=== PATIENT | male | born 1930 | race Caucasian/White ===

== ENCOUNTER 2016-07-25 12:44 | Inpatient (IN) | payer OTHER ==
[~2016-07-25] VITALS: Ht 167.6 cm; Wt 63.0 kg
[~2016-07-25 12:44] MED LIST: ACET325T14 PO; AMLO5TAB2 PO; ASPI-496 PO; ASPI1TAB30 PO; AZIT-14 PO; AZIT500T4 PO; CARV3.1212 PO; CARV3.122 PO; CEFD300C2 PO; CHOL20003 PO; CHOL500014 SQ-VACC; FLUC200T PO; FLUT16SP2 NAS; FLUT50DI IH; FURO-92 PO; FURO20TA3 PO; GABA100C PO; GINK120C PO; GINS100C PO; GUAI200T3 PO; ISOS30TA19 PO; LEVO750T26 PO; LEVO88TA2 PO; LISI5TAB7 PO; LOVA40TA2 PO; METH4TAB2 PO; METR500T PO; MILK150C2 PO; MV-M1TAB3 PO; OMEP-110 PO; OMEP40CA6 PO; PANT40TA5 PO; POTA20PA PO; POTA20TA14 PO; POTASSIUM AMINO ACID PO; [UNRECOGNIZED DRUG - OTHER] PO
[2016-07-25] MEDS ORDERED: ONDANSETRON 2MG/ML, 2ML IVPush ONE (13:30)
[2016-07-25] MEDS ORDERED: SODIUM CHLORIDE FLUSH 10ML SYR IVF ONE (13:30)
[2016-07-25] MEDS ORDERED: MECLIZINE CHEWABLE 25 MG TAB PO ONE (13:30)
[2016-07-25] MEDS ORDERED: MECLIZINE CHEWABLE 25 MG TAB ONE (13:35)
[2016-07-25] MEDS ORDERED: ONDANSETRON 2MG/ML, 2ML ONE (13:36)
[2016-07-25 14:17] LABS: ASPARTATE AMINO TRANSFERASE 26 U/L (15-37); BLOOD UREA NITROGEN 29 mg/dL (7-18)
[2016-07-25 14:26] LABS: IS PT STATUS REG ER OR PRE ER? YES
[2016-07-25 14:44] LABS: HEMOGLOBIN 11.6 g/dL (13.7-18.0)
[2016-07-25] MEDS ORDERED: SODIUM CHLORIDE FLUSH 10ML SYR IVF PRN (15:00)
[2016-07-25] MEDS ORDERED: METRONIDAZOLE PMX 500MG/100ML 100 ML IVPB ONE (15:00)
[2016-07-25] MEDS ORDERED: LEVOFLOXACIN/PMX 750MG/150ML 150 ML IVPB ONE (15:00)
[2016-07-25] MEDS ORDERED: LEVOFLOXACIN/PMX 750MG/150ML 150 ML ONE (15:48)
[2016-07-25] MEDS ORDERED: ONDANSETRON 2MG/ML, 2ML IVP PRN (16:00)
[2016-07-25] MEDS ORDERED: POLYETHYLENE GLYCOL 17 GM PACKET PO PRN (16:00)
[2016-07-25] MEDS ORDERED: BISACODYL 10 MG SUPP PR PRN (16:00)
[2016-07-25] MEDS ORDERED: DOCUSATE 100 MG CAPSULE PO PRN (16:00)
[2016-07-25] MEDS ORDERED: OMNIPAQUE 350 MG/ML, 75ML BOTTLE ONE (16:32)
[2016-07-25] MEDS: METRONIDAZOLE PMX 500MG/100ML 100 ML IV SCH (18:33)
[2016-07-25] MEDS: LACTOBACILLUS CHEW TABLET PO SCH ×2 (18:33→23:15)
[2016-07-25] MEDS: ENOXAPARIN 40 MG/0.4 ML SQ SCH (18:33)
[2016-07-25] MEDS: SODIUM CHLORIDE 0.9% 1,000 ML IV SCH (18:33)
[2016-07-25 18:42] VITALS: BP 170/87
[2016-07-25 20:40] VITALS: BP_SYST 161; BP_SYST 171; BP_DIAS 82; BP_DIAS 85
[2016-07-25] MEDS: CARVEDILOL 3.125 MG TABLET PO SCH (21:00)
[2016-07-25 22:02] VITALS: BP 181/89
[2016-07-25 22:18] VITALS: BP 172/79
[2016-07-25] MEDS: ACETAMINOPHEN 325 MG TABLET PO PRN (22:22)
[2016-07-25 22:46] VITALS: BP 151/69
[2016-07-25] MEDS ORDERED: MORPHINE SULFATE 4 MG/ML, 1ML IVPush ONE (23:00)
[2016-07-25] MEDS ORDERED: MORPHINE SULFATE 4 MG/ML, 1ML ONE (23:10)
[2016-07-25 23:48] LABS: IS PT STATUS REG ER OR PRE ER? NO
[2016-07-26] VITALS (8 sets, daily range): BP systolic 94–187; BP diastolic 52–95
[2016-07-26] MEDS ORDERED: hydrALAzine 20 MG/ML, 1ML IV PRN (01:00)
[2016-07-26] MEDS: METRONIDAZOLE PMX 500MG/100ML 100 ML IV SCH ×3 (03:45→19:54)
[2016-07-26] MEDS: SODIUM CHLORIDE 0.9% 1,000 ML IV SCH (05:04)
[2016-07-26 06:05] LABS: BLOOD UREA NITROGEN 22 mg/dL (7-18)
[2016-07-26 06:12] LABS: ASPARTATE AMINO TRANSFERASE 16 U/L (15-37)
[2016-07-26 06:14] LABS: HEMOGLOBIN 11.1 g/dL (13.7-18.0)
[2016-07-26 06:32] LABS: IS PT STATUS REG ER OR PRE ER? NO
[2016-07-26 06:36] LABS: DIFF TOTAL CELLS COUNTED 100 CELL DIFF
[2016-07-26 06:41] LABS: ANISOCYTOSIS 1+; OVALOCYTES 1+; TARGET CELLS 1+
[2016-07-26 06:42] LABS: LARGE PLATELETS 1+
[2016-07-26 06:43] LABS: VERIFY COUNTS? YES
[2016-07-26] MEDS: CARVEDILOL 3.125 MG TABLET PO SCH (07:36)
[2016-07-26] MEDS: LEVOTHYROXINE 88 MCG TABLET PO SCH (08:03)
[2016-07-26] MEDS: OMEPRAZOLE 20 MG CAPSULE.DR PO SCH (08:03)
[2016-07-26] MEDS: ASPIRIN 81 MG TABLET EC PO SCH (08:03)
[2016-07-26] MEDS: AMLODIPINE 5 MG TABLET PO SCH (08:03)
[2016-07-26] MEDS: LACTOBACILLUS CHEW TABLET PO SCH ×3 (08:03→19:54)
[2016-07-26] MEDS: ISOSORBIDE DINITRATE 30 MG TABLET PO SCH (08:03)
[2016-07-26 11:06] LABS: IS PT STATUS REG ER OR PRE ER? NO
[2016-07-26] MEDS: ENOXAPARIN 40 MG/0.4 ML SQ SCH (15:55)
[2016-07-26] MEDS: LEVOFLOXACIN/PMX 750MG/150ML 150 ML IV SCH (15:56)
[2016-07-27 01:46] VITALS: BP 137/72
[2016-07-27] MEDS: METRONIDAZOLE PMX 500MG/100ML 100 ML IV SCH ×3 (04:02→20:18)
[2016-07-27 07:10] VITALS: BP_SYST 136; BP_SYST 163; BP_DIAS 68; BP_DIAS 73
[2016-07-27] MEDS: ISOSORBIDE DINITRATE 30 MG TABLET PO SCH (08:44)
[2016-07-27] MEDS: OMEPRAZOLE 20 MG CAPSULE.DR PO SCH (08:45)
[2016-07-27] MEDS: AMLODIPINE 5 MG TABLET PO SCH (08:45)
[2016-07-27] MEDS: ASPIRIN 81 MG TABLET EC PO SCH (08:45)
[2016-07-27] MEDS: LEVOTHYROXINE 88 MCG TABLET PO SCH (08:45)
[2016-07-27] MEDS: LACTOBACILLUS CHEW TABLET PO SCH ×3 (08:46→20:18)
[2016-07-27] MEDS ORDERED: CARVEDILOL 3.125 MG TABLET PO SCH (09:00)
[2016-07-27 13:02] VITALS: BP 107/50
[2016-07-27] MEDS: ENOXAPARIN 40 MG/0.4 ML SQ SCH (16:19)
[2016-07-27] MEDS: LEVOFLOXACIN/PMX 750MG/150ML 150 ML IV SCH (16:19)
[2016-07-27 19:08] VITALS: BP 124/66
[2016-07-28 03:08] VITALS: BP 138/56
[2016-07-28] MEDS: METRONIDAZOLE PMX 500MG/100ML 100 ML IV SCH ×3 (04:28→22:14)
[2016-07-28 07:02] VITALS: BP 135/74
[2016-07-28] MEDS: ASPIRIN 81 MG TABLET EC PO SCH (08:21)
[2016-07-28] MEDS: LEVOTHYROXINE 88 MCG TABLET PO SCH (08:21)
[2016-07-28] MEDS: ISOSORBIDE DINITRATE 30 MG TABLET PO SCH (08:21)
[2016-07-28] MEDS: LACTOBACILLUS CHEW TABLET PO SCH ×3 (08:21→21:27)
[2016-07-28] MEDS: OMEPRAZOLE 20 MG CAPSULE.DR PO SCH (08:21)
[2016-07-28] MEDS: AMLODIPINE 5 MG TABLET PO SCH (08:21)
[2016-07-28 13:00] VITALS: BP 138/67
[2016-07-28] MEDS: ENOXAPARIN 40 MG/0.4 ML SQ SCH (17:45)
[2016-07-28] MEDS: LEVOFLOXACIN/PMX 750MG/150ML 150 ML IV SCH (17:45)
[2016-07-28 20:00] VITALS: BP 150/81
[2016-07-29 03:30] VITALS: BP 157/71
[2016-07-29] MEDS: METRONIDAZOLE PMX 500MG/100ML 100 ML IV SCH ×3 (05:50→23:10)
[2016-07-29 07:28] LABS: BLOOD UREA NITROGEN 14 mg/dL (7-18)
[2016-07-29 07:41] LABS: DIFF TOTAL CELLS COUNTED 100 CELL DIFF; HEMOGLOBIN 12.5 g/dL (13.7-18.0)
[2016-07-29 07:43] LABS: ANISOCYTOSIS 1+; GIANT PLATELETS 1+; LARGE PLATELETS 1+; VERIFY COUNTS? YES
[2016-07-29] MEDS: ISOSORBIDE DINITRATE 30 MG TABLET PO SCH (08:28)
[2016-07-29] MEDS: AMLODIPINE 5 MG TABLET PO SCH (08:28)
[2016-07-29] MEDS: LACTOBACILLUS CHEW TABLET PO SCH ×3 (08:28→20:50)
[2016-07-29] MEDS: ASPIRIN 81 MG TABLET EC PO SCH (08:28)
[2016-07-29] MEDS: OMEPRAZOLE 20 MG CAPSULE.DR PO SCH (08:29)
[2016-07-29] MEDS: LEVOTHYROXINE 88 MCG TABLET PO SCH (08:29)
[2016-07-29 08:38] VITALS: BP 157/79
[2016-07-29 13:10] VITALS: BP 152/83
[2016-07-29] MEDS ORDERED: MIDAZOLAM 1 MG/ML, 5ML ONE (15:36)
[2016-07-29] MEDS ORDERED: VERAPAMIL 2.5 MG/ML, 2ML ONE (15:36)
[2016-07-29] MEDS ORDERED: FENTANYL PF 100 MCG/2ML ONE (15:36)
[2016-07-29] MEDS ORDERED: HEPARIN 1,000 UNITS/ML, 10ML ONE (15:37)
[2016-07-29] MEDS ORDERED: LIDOCAINE 2%, 20ML ONE (15:37)
[2016-07-29 16:45] VITALS: BP 157/86
[2016-07-29] MEDS: SODIUM CHLORIDE 0.9% 1,000 ML IV SCH (17:57)
[2016-07-29] MEDS: LEVOFLOXACIN/PMX 750MG/150ML 150 ML IV SCH (17:57)
[2016-07-29] MEDS: ENOXAPARIN 40 MG/0.4 ML SQ SCH (18:06)
[2016-07-29 19:07] VITALS: BP 146/80
[2016-07-30 01:39] VITALS: BP 165/86
[2016-07-30 06:26] LABS: HEMOGLOBIN 13.2 g/dL (13.7-18.0)
[2016-07-30 06:30] LABS: BLOOD UREA NITROGEN 16 mg/dL (7-18)
[2016-07-30 06:35] VITALS: BP 140/77
[2016-07-30] MEDS: METRONIDAZOLE PMX 500MG/100ML 100 ML IV SCH ×3 (06:35→22:29)
[2016-07-30] MEDS: SODIUM CHLORIDE 0.9% 1,000 ML IV SCH ×2 (06:35→19:00)
[2016-07-30 07:04] LABS: DIFF TOTAL CELLS COUNTED 100 CELL DIFF
[2016-07-30 07:30] VITALS: BP_SYST 156; BP_SYST 184; BP_SYST 198; BP_DIAS 101; BP_DIAS 72; BP_DIAS 84
[2016-07-30 07:52] LABS: ANISOCYTOSIS 1+; OVALOCYTES 1+; VERIFY COUNTS? YES
[2016-07-30] MEDS: ISOSORBIDE DINITRATE 30 MG TABLET PO SCH (08:13)
[2016-07-30] MEDS: ASPIRIN 81 MG TABLET EC PO SCH (08:14)
[2016-07-30] MEDS: AMLODIPINE 5 MG TABLET PO SCH (08:14)
[2016-07-30] MEDS: LACTOBACILLUS CHEW TABLET PO SCH ×3 (08:14→22:29)
[2016-07-30] MEDS: OMEPRAZOLE 20 MG CAPSULE.DR PO SCH (08:14)
[2016-07-30] MEDS: LEVOTHYROXINE 88 MCG TABLET PO SCH (08:14)
[2016-07-30] MEDS: ACETAMINOPHEN 325 MG TABLET PO PRN ×2 (08:21→17:47)
[2016-07-30] MEDS ORDERED: SODIUM CHLORIDE 0.9% 500 ML IVBOLUS PRN (09:20)
[2016-07-30 13:59] VITALS: BP 119/61
[2016-07-30] MEDS: ENOXAPARIN 40 MG/0.4 ML SQ SCH (16:34)
[2016-07-30] MEDS: LEVOFLOXACIN/PMX 750MG/150ML 150 ML IV SCH (17:47)
[2016-07-30 20:40] VITALS: BP 128/73
[2016-07-31] VITALS (8 sets, daily range): BP systolic 142–170; BP diastolic 70–104
[2016-07-31] MEDS: ACETAMINOPHEN 325 MG TABLET PO PRN (05:26)
[2016-07-31] MEDS: METRONIDAZOLE PMX 500MG/100ML 100 ML IV SCH ×3 (05:30→21:47)
[2016-07-31] MEDS: SODIUM CHLORIDE 0.9% 1,000 ML IV SCH (05:31)
[2016-07-31 05:41] LABS: HEMOGLOBIN 13.2 g/dL (13.7-18.0)
[2016-07-31 05:50] LABS: BLOOD UREA NITROGEN 16 mg/dL (7-18)
[2016-07-31 05:57] LABS: DIFF TOTAL CELLS COUNTED 100 CELL DIFF
[2016-07-31 06:01] LABS: ANISOCYTOSIS 1+; VERIFY COUNTS? YES
[2016-07-31] MEDS: AMLODIPINE 2.5 MG TABLET PO SCH (08:47)
[2016-07-31] MEDS: ISOSORBIDE DINITRATE 30 MG TABLET PO SCH (08:47)
[2016-07-31] MEDS: ASPIRIN 81 MG TABLET EC PO SCH (08:47)
[2016-07-31] MEDS: OMEPRAZOLE 20 MG CAPSULE.DR PO SCH (08:47)
[2016-07-31] MEDS: LACTOBACILLUS CHEW TABLET PO SCH ×3 (08:47→21:47)
[2016-07-31] MEDS: LEVOTHYROXINE 88 MCG TABLET PO SCH (08:48)
[2016-07-31] MEDS: ENOXAPARIN 40 MG/0.4 ML SQ SCH (15:47)
[2016-07-31] MEDS: LEVOFLOXACIN/PMX 750MG/150ML 150 ML IV SCH (17:18)
[2016-08-01 01:45] VITALS: BP_SYST 136; BP_SYST 162; BP_SYST 172; BP_DIAS 73; BP_DIAS 93; BP_DIAS 99
[2016-08-01] MEDS: METRONIDAZOLE PMX 500MG/100ML 100 ML IV SCH (05:26)
[2016-08-01] MEDS ORDERED: LEVOTHYROXINE 88 MCG TABLET PO SCH (06:00)
[2016-08-01 07:33] VITALS: BP 156/84
[2016-08-01] MEDS: ASPIRIN 81 MG TABLET EC PO SCH (08:53)
[2016-08-01] MEDS: LACTOBACILLUS CHEW TABLET PO SCH (08:53)
[2016-08-01] MEDS: ISOSORBIDE DINITRATE 30 MG TABLET PO SCH (08:53)
[2016-08-01] MEDS: AMLODIPINE 2.5 MG TABLET PO SCH (08:53)
[2016-08-01] MEDS: OMEPRAZOLE 20 MG CAPSULE.DR PO SCH (08:53)
[2016-08-01] MEDS ORDERED: AMLO2.5T PO (12:36)
[2016-08-01] MEDS ORDERED: METR500T PO (12:36)
[2016-08-01] MEDS ORDERED: LEVO500T33 PO (12:36)
[2016-08-01 13:56] VITALS: BP 112/70
== END 2016-08-01 15:54 | disposition home or self-care (01) | DRG 286 ==
LOC: ED 13:38 → EDIP 15:13 → 4WST 17:24 → 5SO 07-29 16:51
PROC: 4A023N7 Measurement of Cardiac Sampling and Pressure, Left Heart, Percutaneous Approach (ICD-10-PCS; principal; 2016-07-29)
PROC: B2111ZZ Fluoroscopy of Multiple Coronary Arteries using Low Osmolar Contrast (ICD-10-PCS; 2016-07-29)
PROC: B2181ZZ Fluoroscopy of Left Internal Mammary Bypass Graft using Low Osmolar Contrast (ICD-10-PCS; 2016-07-29)
PROC: B2121ZZ Fluoroscopy of Single Coronary Artery Bypass Graft using Low Osmolar Contrast (ICD-10-PCS; 2016-07-29)
DX: T82.898A Other specified complication of vascular prosthetic devices, implants and grafts, initial encounter (principal); J69.0 Pneumonitis due to inhalation of food and vomit; E44.1 Mild protein-calorie malnutrition; I50.42 Chronic combined systolic (congestive) and diastolic (congestive) heart failure; J98.11 Atelectasis; I47.2 Ventricular tachycardia; R55 Syncope and collapse; R42 Dizziness and giddiness; D53.9 Nutritional anemia, unspecified; E86.0 Dehydration; E78.5 Hyperlipidemia, unspecified; I27.2 Other secondary pulmonary hypertension; I35.0 Nonrheumatic aortic (valve) stenosis; J44.9 Chronic obstructive pulmonary disease, unspecified; N18.3 Chronic kidney disease, stage 3 (moderate); I25.10 Atherosclerotic heart disease of native coronary artery without angina pectoris; D63.8 Anemia in other chronic diseases classified elsewhere; E03.9 Hypothyroidism, unspecified; I44.7 Left bundle-branch block, unspecified; H91.90 Unspecified hearing loss, unspecified ear; Y83.2 Surgical operation with anastomosis, bypass or graft as the cause of abnormal reaction of the patient, or of later complication, without mention of misadventure at the time of the procedure; I12.9 Hypertensive chronic kidney disease with stage 1 through stage 4 chronic kidney disease, or unspecified chronic kidney disease; I34.0 Nonrheumatic mitral (valve) insufficiency; Z85.72 Personal history of non-Hodgkin lymphomas; Z95.1 Presence of aortocoronary bypass graft; Z86.73 Personal history of transient ischemic attack (TIA), and cerebral infarction without residual deficits; Z87.01 Personal history of pneumonia (recurrent); Z87.891 Personal history of nicotine dependence; Z90.3 Acquired absence of stomach [part of]; Z88.0 Allergy status to penicillin; Z68.22 Body mass index [BMI] 22.0-22.9, adult
CPT/HCPCS: 36415; 70450; 71010; 71260; 76700; 80048; 80053; 82533; 83605; 83735; 84484; 85025; 85610; 87040; 93005; 93306; 93455; 96374; C1760; C1894; J1644; J1650; J1956; J2250; J2405; J3010; J3490; Q9967; J7030

== ENCOUNTER 2016-10-06 08:01 | Day surgery (SDC) | payer OTHER ==
[~2016-10-06] VITALS: Ht 166.4 cm; Wt 55.0 kg
[~2016-10-06 08:01] MED LIST changes: +AMLO2.5T PO; -AZIT-14 PO; +AZIT250T89 PO; -AZIT500T4 PO; +AZIT500T77 PO; -CEFD300C2 PO; +CEFD300C37 PO; +LEVO500T33 PO
[2016-10-06 09:07] VITALS: BP 111/63
[2016-10-06] MEDS ORDERED: LACTATED RINGERS 1,000 ML IV SCH (09:12)
[2016-10-06] MEDS ORDERED: LISI5TAB PO (09:19)
[2016-10-06] MEDS ORDERED: PYRI60SY NG (09:19)
[2016-10-06] MEDS ORDERED: CARV3.1212 PO (09:19)
[2016-10-06] MEDS ORDERED: CHOL400D3 PO (09:19)
[2016-10-06] MEDS ORDERED: WARF4TAB PO (09:19)
[2016-10-06] MEDS ORDERED: ALBU2.5V NEB (09:19)
[2016-10-06] MEDS ORDERED: ATOR20TA9 PO (09:19)
[2016-10-06] MEDS ORDERED: PROPOFOL 10 MG/ML, 20ML ONE (10:20)
[2016-10-06] MEDS ORDERED: FENTANYL PF 100 MCG/2ML IV PRN (10:30)
[2016-10-06] MEDS ORDERED: OXYcodone 5 MG/5 ML ORAL.SOL UDC PO PRN (10:30)
[2016-10-06] MEDS ORDERED: VANCOMYCIN 1,000 MG in SODIUM CHLORIDE 0.9% 250 ML IV ONE (10:30)
[2016-10-06] MEDS ORDERED: PROMETHAZINE 25 MG/ML, 1ML IV PRN (10:30)
[2016-10-06] MEDS ORDERED: VANCOMYCIN PMX 1GM/200ML 200 ML IVPB ONE (10:30)
[2016-10-06] MEDS ORDERED: METOCLOPRAMIDE 5 MG/ML, 2ML IV PRN (10:30)
[2016-10-06] MEDS ORDERED: GENTAMICIN 80 MG in SODIUM CHLORIDE 0.9% 50 ML IV ONE (10:30)
[2016-10-06] MEDS ORDERED: HYDROmorphone 1 MG/ML, 1ML IV PRN (10:30)
[2016-10-06] MEDS ORDERED: ONDANSETRON 2MG/ML, 2ML IVPush PRN (10:30)
== END 2016-10-06 12:15 | disposition home or self-care (01) ==
LOC: OUT 08:01
PROVIDERS: ATTEND Internal Medicine Geriatric Medicine
DX: R13.10 Dysphagia, unspecified (principal); I11.0 Hypertensive heart disease with heart failure; I50.9 Heart failure, unspecified; I48.91 Unspecified atrial fibrillation; E78.5 Hyperlipidemia, unspecified; E03.9 Hypothyroidism, unspecified; J96.00 Acute respiratory failure, unspecified whether with hypoxia or hypercapnia; F03.90 Unspecified dementia, unspecified severity, without behavioral disturbance, psychotic disturbance, mood disturbance, and anxiety; K21.9 Gastro-esophageal reflux disease without esophagitis; I25.10 Atherosclerotic heart disease of native coronary artery without angina pectoris; Z95.1 Presence of aortocoronary bypass graft; Z88.0 Allergy status to penicillin
CPT/HCPCS: 36415; 43235; 85610; J2704; J7120

== ENCOUNTER 2016-10-14 08:58 | Inpatient (IN) | payer OTHER ==
[~2016-10-14] VITALS: Ht 167.6 cm; Wt 56.8 kg
[~2016-10-14 08:58] MED LIST changes: +ALBU2.5V NEB; +ATOR20TA9 PO; +BUPIVACAINE/PF-EPI 0.25% 1:200K ONE; +CHOL400D3 PO; +LISI5TAB PO; +PYRI60SY NG; +WARF4TAB PO
[2016-10-14] MEDS ORDERED: LACTATED RINGERS 1,000 ML IV SCH (09:33)
[2016-10-14 10:11] VITALS: BP 137/70
[2016-10-14] MEDS ORDERED: FENTANYL PF 100 MCG/2ML ONE ×2 (11:02→13:07)
[2016-10-14] MEDS ORDERED: GLYCOPYRROLATE 0.2MG/1ML ONE (12:05)
[2016-10-14] MEDS ORDERED: ROCURONIUM 10 MG/ML ONE (12:05)
[2016-10-14] MEDS ORDERED: CEFAZOLIN 1,000 MG ONE (12:05)
[2016-10-14] MEDS ORDERED: NEOSTIGMINE 1 MG/ML, 10ML ONE (12:05)
[2016-10-14] MEDS ORDERED: PROPOFOL 10 MG/ML, 20ML ONE (12:05)
[2016-10-14] MEDS ORDERED: OXYcodone 5 MG/5 ML ORAL.SOL UDC PO PRN (12:30)
[2016-10-14] MEDS ORDERED: hydrALAzine 20 MG/ML, 1ML IV PRN (12:30)
[2016-10-14] MEDS ORDERED: HYDROmorphone 1 MG/ML, 1ML IV PRN (12:30)
[2016-10-14] MEDS ORDERED: MEPERIDINE/PF 25MG/0.5ML IVPush PRN (12:30)
[2016-10-14] MEDS ORDERED: METOCLOPRAMIDE 5 MG/ML, 2ML IV PRN (12:30)
[2016-10-14] MEDS ORDERED: ONDANSETRON 2MG/ML, 2ML IVPush PRN ×2 (12:30→13:00)
[2016-10-14] MEDS ORDERED: PROMETHAZINE 25 MG/ML, 1ML IV PRN (12:30)
[2016-10-14] MEDS ORDERED: HYDROcodone/APAP 7.5-325MG/15ML UDC PO PRN ×2 (13:00)
[2016-10-14] MEDS ORDERED: LABETALOL 5MG/ML, 20ML ONE (13:07)
[2016-10-14] MEDS: LABETALOL 5MG/ML, 20ML IV PRN ×2 (13:08→13:47)
[2016-10-14] MEDS: FENTANYL PF 100 MCG/2ML IV PRN ×3 (13:15→14:02)
[2016-10-14] MEDS ORDERED: OXYcodone 5 MG/5 ML ORAL.SOL UDC ONE (13:39)
[2016-10-14] MEDS ORDERED: hydrALAzine 20 MG/ML, 1ML ONE (14:06)
[2016-10-14] MEDS ORDERED: MORPHINE SULFATE 4 MG/ML, 1ML ONE (14:51)
[2016-10-14] MEDS: morphine SULFATE 10 MG/ML, 1ML IVPush PRN (14:53)
[2016-10-14 16:32] VITALS: BP 150/82
[2016-10-14] MEDS: LACTATED RINGERS 1,000 ML IV SCH (17:10)
[2016-10-14 20:18] VITALS: BP 132/66
[2016-10-14 23:30] VITALS: BP 114/61
[2016-10-15 03:53] VITALS: BP 106/60
[2016-10-15] MEDS: LACTATED RINGERS 1,000 ML IV SCH (05:50)
[2016-10-15 08:10] VITALS: BP 109/64
[2016-10-15] MEDS: morphine SULFATE 10 MG/ML, 1ML IVPush PRN (08:18)
[2016-10-15 14:03] VITALS: BP 122/65
[2016-10-15 17:12] VITALS: BP 126/67
== END 2016-10-15 18:20 | DRG 391 ==
LOC: OUT 08:58 → ORIP 15:14 → 4NOR 16:12 → OBSVTOIN 10-15 09:58
PROVIDERS: ADMIT Thoracic Surgery (Cardiothoracic Vascular Surgery); ATTEND Thoracic Surgery (Cardiothoracic Vascular Surgery)
PROC: 0DHA4UZ Insertion of Feeding Device into Jejunum, Percutaneous Endoscopic Approach (ICD-10-PCS; principal; 2016-10-14 12:30)
DX: R13.10 Dysphagia, unspecified (principal); E43 Unspecified severe protein-calorie malnutrition; K66.0 Peritoneal adhesions (postprocedural) (postinfection); R33.9 Retention of urine, unspecified; F03.90 Unspecified dementia, unspecified severity, without behavioral disturbance, psychotic disturbance, mood disturbance, and anxiety; I48.91 Unspecified atrial fibrillation; D64.9 Anemia, unspecified; I10 Essential (primary) hypertension; I25.10 Atherosclerotic heart disease of native coronary artery without angina pectoris; E03.9 Hypothyroidism, unspecified; I35.0 Nonrheumatic aortic (valve) stenosis; Z95.1 Presence of aortocoronary bypass graft; Z88.0 Allergy status to penicillin; Z87.01 Personal history of pneumonia (recurrent); Z90.3 Acquired absence of stomach [part of]; Z79.899 Other long term (current) drug therapy; Z85.72 Personal history of non-Hodgkin lymphomas; Z68.20 Body mass index [BMI] 20.0-20.9, adult
CPT/HCPCS: B4087; G0378; J0690; J2704; J2710; J3010; J3490; J0360; J2270; J7120